=== PATIENT | female | born 1940 | race Caucasian/White ===

== ENCOUNTER 2020-10-20 10:37 | Emergency (ER) | payer MEDICARE ==
--- NOTE | 2020-10-20 11:37 | ED Physician Documentation ---
PD HPI HEADACHE - Stated complaint Stated Complaint: BODY ACHES/RUSHING - Chief complaint Chief Complaint: General - History obtained from History obtained from: Patient - History of Present Illness Timing - onset: Today, Last night Timing - onset during: Light activity Timing - duration: Days (1/2) Timing - details: Gradual onset, Still present Worst headache ever?: No: Worst headache ever? Location: Back, Right Quality: Throbbing Associated symptoms: Nausea, Weakness (general, with myalgias). No: Fever, Stiff neck, Vision changes Improved by: No: Dark room Worsened by: No: Light Contributing factors: Anticoagulated. No: Hypertension, Recent illness ( is not ill. No exposures to COVID or other illness. She has been immunized several months ago.), Trauma Similar symptoms before: Has not had sx before Recently seen: Not recently seen Review of Systems Constitutional: reports: Myalgias, Fatigue. denies: Fever, Chills Nose: denies: Rhinorrhea / runny nose, Congestion Throat: denies: Sore throat Cardiac: reports: Palpitations (history of atrial fib with chronic irregular heart rate.). denies: Chest pain / pressure, Pedal edema, Calf pain Respiratory: denies: Dyspnea, Cough GI: reports: Nausea. 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, Hysterectomy HEENT: Cataracts, Tonsil/Adenoidectomy - Present Medications Home Medications: Ambulatory Orders Medication Instructions Recorded Confirmed Amoxicillin/Potassium Clav 1 each PO BID #10 tablet 10/03/13 10/05/13 [Augmentin 875-125 Tablet] Metoprolol Tartrate 150 mg PO DAILY 10/03/13 10/05/13 Warfarin Sodium [Coumadin] 7.5 mg PO DAILY 10/03/13 10/05/13 Ondansetron Odt [Zofran] 4 mg TL Q6H PRN #10 tablet 10/05/13 Ondansetron Odt [Zofran] 4 mg TL Q6H PRN #10 tablet 10/20/20 - Allergies Allergies/Adverse Reactions: Allergies Allergy/AdvReac Type Severity Reaction Status Date / Time Sulfa (Sulfonamide Allergy Unknown Verified 10/03/13 07:56 Antibiotics) - Living Situation Living Situation: reports: With spouse/s.o. Living Arrangement: reports: At home - Social History Does the pt smoke?: No Smoking Status: Never smoker Does the pt drink ETOH?: Yes Does the pt have substance abuse?: No - POLST Patient has POLST: No PD ED PE NORMAL - Vitals Vital signs reviewed: Yes - General General: Alert and oriented X 3, No acute distress, Well developed/nourished - HEENT HEENT: Atraumatic, Pharynx benign - Neck Neck: Supple, no meningeal sign, No adenopathy - Cardiac Cardiac: No: RRR (irregular with borderline tachycardia) - Respiratory Respiratory: Clear bilaterally - Abdomen Abdomen: Normal bowel sounds, Soft, Non tender, Non distended - Back Back: No CVA TTP - Derm Derm: Normal color, Warm and dry - Extremities Extremities: No edema, No calf tenderness / cord - Neuro Neuro: Alert and oriented X 3, No motor deficit, No sensory deficit, Normal speech Eye Opening: Spontaneous Motor: Obeys Commands Verbal: Oriented GCS Score: 15 - Psych Psych: Normal mood, Normal affect Results - Vitals Vitals: Vital Signs - 24 hr 10/20/20 10/20/20 10/20/20 10:45 12:41 13:32 Temperature 36.9 C 37.1 C Heart Rate 96 101 H 105 H Respiratory 18 20 16 Rate Blood Pressure 124/74 134/92 H 125/91 H O2 Saturation 97 99 95 Oxygen O2 Source Room air - Labs Labs: Laboratory Tests 10/20/20 10/20/20 10/20/20 12:30 12:30 12:30 WBC 7.3 RBC 4.24 Hgb 13.6 Hct 39.3 MCV 92.7 MCH 32.1 H MCHC 34.6 RDW 12.2 Plt Count 157 MPV 10.1 Neut # (Auto) 5.8 Lymph # (Auto) 0.9 L [place] # (Auto) 0.6 Eos # (Auto) 0.0 Baso # (Auto) 0.0 Absolute Nucleated RBC 0.00 Nucleated RBC % 0.0 PT 54.8 H INR 5.5 H* Sodium 138 Potassium 4.0 Chloride 103 Carbon Dioxide 25 Anion Gap 10.0 BUN 16 Creatinine 0.7 Estimated GFR (MDRD) 80 L Glucose 120 H Calcium 9.0 Total Bilirubin 1.1 H AST 30 ALT 24 Alkaline Phosphatase 59 Troponin I High Sens Total Protein 6.9 Albumin 4.3 Globulin 2.6 Albumin/Globulin Ratio 1.7 Lipase 25 10/20/20 12:30 WBC RBC Hgb Hct MCV MCH MCHC RDW Plt Count MPV Neut # (Auto) Lymph # (Auto) [place] # (Auto) Eos # (Auto) Baso # (Auto) Absolute Nucleated RBC Nucleated RBC % PT INR Sodium Potassium Chloride Carbon Dioxide Anion Gap BUN Creatinine Estimated GFR (MDRD) Glucose Calcium Total Bilirubin AST ALT Alkaline Phosphatase Troponin I High Sens 5.1 Total Protein Albumin Globulin Albumin/Globulin Ratio Lipase PD MEDICAL DECISION MAKING - ED course Complexity details: re-evaluated patient (She is feeling much improved with IV fluids and ZOfran/Toradol. Headache is gone. She is feeling well and wishing to go home. ), considered differential (She did not have any injury. Her headache was gradual in onset and associated with myalgias diffusely and general nausea. She is on Coumadin. We will check general labs but considered head CT for bleed which she declined.), d/w patient Departure - Departure Disposition: 01 Home, Self Care Clinical Impression: Nausea, Abdominal cramping, Supratherapeutic international normalized ratio (INR) Headache Qualifiers: Headache type: unspecified Headache chronicity pattern: acute headache Intractability: not intractable Qualified Code(s): R51.9 - Headache, unspecified Condition: Stable Record reviewed to determine appropriate education?: Yes Prescriptions: Ondansetron Odt [Zofran] 4 mg TL Q6H PRN #10 tablet PRN Reason: Nausea / Vomiting Comments: Your symptoms generally sound possibly a viral type illness given the myalgias, nausea, headache, cramping and loose stool. We did do a Covid test and that should result tomorrow. This is less likely given your immunization and lack of contacts but still worth checking. Your blood count is normal. Your ECG shows the atrial fib but no signs of heart attack by ECG and blood test called Troponin. Your INR is above the therapeutic range at 5.5. I would suggest holding your dose tonight and then tomorrow taking a half dose of 3.75 mg and then resume your normal dosing. Meanwhile contact your coagulation clinic to see if they agree with that and have your INR rechecked Tuesday or . Use ondansetron if needed for nausea and Tylenol if needed for pains or aches. If you have increasing headache or other symptoms of confusion blurred vision etc., then return for the head CT scan that we discussed. Discharge Date/Time: 10/20/20 13:44
[2020-10-20] MEDS ORDERED: ONDANSETRON 4 MG/2 ML VIAL IVP STA (12:11)
[2020-10-20] MEDS ORDERED: FAMOTIDINE 20 MG/2 ML VIAL IVP STA (12:11)
[2020-10-20] MEDS ORDERED: SODIUM CHLORIDE 0.9% 1,000 ML IV STA (12:11)
[2020-10-20] MEDS ORDERED: KETOROLAC 15 MG/ML VIAL IVP STA (12:25)
[2020-10-20 12:38] LABS: BASOPHILS % (AUTO) 0.3 %; EOSINOPHILS % (AUTO) 0.3 %; HCT - HEMATOCRIT 39.3 % (37.0-47.0); HGB - HEMOGLOBIN 13.6 g/dL (12.0-16.0); LYMPHOCYTES # (AUTO) 0.9 10^3/uL (1.5-3.5); MEAN CORPUSCULAR HEMOGLOBIN 32.1 pg (27.0-31.0); MEAN CORPUSCULAR HGB CONC 34.6 g/dL (32.0-36.0); MEAN CORPUSCULAR VOLUME 92.7 fL (81.0-99.0); MEAN PLATELET VOLUME 10.1 fL (7.9-10.8); MONOCYTES # (AUTO) 0.6 10^3/uL (0.0-1.0); MONOCYTES % (AUTO) 7.6 %; NEUTROPHILS # (AUTO) 5.8 10^3/uL (1.5-6.6); NEUTROPHILS % (AUTO) 79.5 %; PLT - PLATELET COUNT 157 10^3/uL (130-450); RED BLOOD COUNT 4.24 10^6/uL (4.20-5.40); RED CELL DISTRIBUTION WIDTH 12.2 % (12.0-15.0); WHITE BLOOD COUNT 7.3 x10^3/uL (4.8-10.8)
[2020-10-20 12:49] LABS: PT - PROTHROMBIN TIME 54.8 secs (9.9-12.6)
[2020-10-20 12:53] LABS: ALBUMIN 4.3 g/dL (3.2-5.5); ALBUMIN/GLOBULIN RATIO 1.7 (1.0-2.2); BILIRUBIN,TOTAL 1.1 mg/dL (0.2-1.0); CREATININE 0.7 mg/dL (0.4-1.0); TOTAL PROTEIN 6.9 g/dL (6.7-8.2)
[2020-10-20 12:58] LABS: INR 5.5 (0.8-1.2)
[2020-10-20 13:32] VITALS: BP 125/91
== END 2020-10-20 13:44 | disposition home or self-care (01) ==
LOC: ED 10:37
DX: R11.0 Nausea (principal); R51.9 Headache, unspecified; I48.91 Unspecified atrial fibrillation; Z79.01 Long term (current) use of anticoagulants; R79.1 Abnormal coagulation profile
CPT/HCPCS: 36415; 80053; 83690; 84484; 85025; 85610; 93005; 96374; 99284; U0004

== ENCOUNTER 2022-12-09 09:01 | Outpatient (CLI) | payer MEDICARE ==
[2022-12-09 09:30] LABS: ALBUMIN 4.5 g/dL (3.2-5.5); ALBUMIN/GLOBULIN RATIO 1.9 (1.0-2.2); BILIRUBIN,TOTAL 0.9 mg/dL (0.2-1.0); CALCIUM 9.9 mg/dL (8.5-10.3); CREATININE 0.8 mg/dL (0.6-1.3); POTASSIUM 4.3 mmol/L (3.5-4.5); TOTAL PROTEIN 6.9 g/dL (6.4-8.9)
[2022-12-09 09:47] LABS: THYROID STIMULATING HORMONE 4.85 uIU/mL (0.34-5.60)
== END 2022-12-09 09:02 | disposition home or self-care (01) ==
LOC: LAB 09:01
PROVIDERS: ATTEND Internal Medicine Cardiovascular Disease
DX: I10 Essential (primary) hypertension (principal)
CPT/HCPCS: 36415; 80053; 83880; 84439; 84443

== ENCOUNTER 2022-12-22 10:09 | Outpatient (CLI) | payer MEDICARE | END 2022-12-22 10:10 | disposition home or self-care (01) | LOC: DI 10:09 | PROVIDERS: ATTEND Internal Medicine Cardiovascular Disease | DX: I08.3 Combined rheumatic disorders of mitral, aortic and tricuspid valves (principal); I48.91 Unspecified atrial fibrillation; I87.8 Other specified disorders of veins | CPT/HCPCS: 93306 ==

== ENCOUNTER 2023-02-17 09:06 | Emergency (ER) | payer MEDICARE ==
[2023-02-17 09:38] VITALS: BP 127/82; O2SAT 100
--- NOTE | 2023-02-17 10:29 | XRAY Report ---
PROCEDURE: Chest 2 View X-Ray INDICATIONS: cough TECHNIQUE: 2 views of the chest were acquired. COMPARISON: None. FINDINGS: Surgical changes and devices: None. Lungs and pleura: Patchy airspace opacities of the left lung base with possible nodular density invo lving the medial aspect of the left lower lung zone. No pneumothorax. No substantial pleural effusion . Mediastinum: Mediastinal contours appear normal. Heart size is normal. Bones and chest wall: No suspicious bony lesions. Overlying soft tissues appear unremarkable. IMPRESSION: Patchy left lung base airspace opacity with suggestion of more focal nodular density in the medial le ft lower lung. Findings likely represent infectious process/pneumonia. Recommend follow-up imaging 4- 6 weeks after appropriate treatment to document resolution. If nodular density or opacities persist, further evaluation with CT recommended at that time to exclude possible underlying neoplastic process . Reviewed by: Flaco Dean MD on 02/17/2023 10:[address] [facility] Approved by: Flaco Dean MD on 02/17/2023 10:[address] [facility] Station ID: [id number]
--- NOTE | 2023-02-17 11:11 | ED Physician Documentation ---
PD HPI URI - Stated complaint Stated Complaint: COUGH,SOA - Chief complaint Chief Complaint: Resp - History obtained from History obtained from: Patient - Additional information Additional information: Patient is an 82-year-old female presenting for evaluation of 2 weeks of a productive cough. Denies fever, congestion. Shortness of air or chest pain. Has taken a COVID test which has been negative. Reports feeling that the cough has not been improving on its own thus presenting for evaluation. No recent travel. Denies leg swelling or pain. Review of Systems Constitutional: denies: Fever Cardiac: denies: Chest pain / pressure Respiratory: reports: Cough. 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, Hysterectomy HEENT: Cataracts, Tonsil/Adenoidectomy - Present Medications Home Medications: Ambulatory Orders Medication Instructions Recorded Confirmed Amoxicillin/Potassium Clav 1 each PO BID #10 tablet 10/03/13 10/05/13 [Augmentin 875-125 Tablet] Metoprolol Tartrate 150 mg PO DAILY 10/03/13 10/05/13 Warfarin Sodium [Coumadin] 7.5 mg PO DAILY 10/03/13 10/05/13 Ondansetron Odt [Zofran] 4 mg TL Q6H PRN #10 tablet 10/05/13 Ondansetron Odt [Zofran] 4 mg TL Q6H PRN #10 tablet 10/20/20 Amoxicillin 1,000 mg PO TID 5 Days #30 cap 02/17/23 Benzonatate [Tessalon] 200 mg PO QID PRN #20 cap 02/17/23 - Allergies Allergies/Adverse Reactions: Allergies Allergy/AdvReac Type Severity Reaction Status Date / Time Sulfa (Sulfonamide Allergy Unknown Verified 02/17/23 09:33 Antibiotics) - Social History Does the pt smoke?: No Smoking Status: Never smoker Does the pt drink ETOH?: Yes Does the pt have substance abuse?: No - POLST Patient has POLST: No PD ED PE NORMAL - General General: Alert and oriented X 3, No acute distress, Well developed/nourished - HEENT HEENT: Atraumatic, Moist mucous membranes, Pharynx benign - Neck Neck: Supple, no meningeal sign - Cardiac Cardiac: RRR - Respiratory Respiratory: No respiratory distress, Other (Pain and rhonchi at the left lung base, otherwise clear) - Abdomen Abdomen: Soft, Non tender - Derm Derm: Warm and dry - Extremities Extremities: No edema, No calf tenderness / cord - Neuro Neuro: Normal speech Results - Vitals Vitals: Vital Signs - 24 hr 02/17/23 09:30 Temperature 36.6 C Heart Rate 65 Respiratory 20 Rate Blood Pressure 127/82 H O2 Saturation 100 Oxygen O2 Source Room air PD Medical Decision Making - ED course Complexity details: reviewed results, d/w patient ED course: Patient is 82-year-old female presenting for evaluation of cough for 2 weeks. Vital signs are stable. No signs of labored breathing. Has taken a COVID test at home which has been negative. 2 view chest x-ray which I reviewed demonstrates patchy opacity in the left lung base. Given her symptoms we will opt to treat for pneumonia. Patient counseled regarding treatment plan as well as concerning symptoms to return for. Departure - Departure Disposition: 01 Home, Self Care Clinical Impression: CAP (community acquired pneumonia) Condition: Stable Instructions: ED Pneumonia Adult Prescriptions: Amoxicillin 1,000 mg PO TID 5 Days #30 cap Benzonatate [Tessalon] 200 mg PO QID PRN #20 cap PRN Reason: Cough Comments: I have sent a prescription for an antibiotic to [facility] in [place]. I would also recommend close follow-up with your primary care provider as you should have another x-ray in approximately 4 to 6 weeks after you have completed your treatment. XRAY: Patchy left lung base airspace opacity with suggestion of more focal nodular density in the medial left lower lung. Findings likely represent infectious process/pneumonia. Recommend follow-up imaging 4-6 weeks after appropriate treatment to document resolution. If nodular density or opacities persist, further evaluation with CT recommended at that time to exclude possible underlying neoplastic process. Forms: PCP List Discharge Date/Time: 02/17/23 11:37
== END 2023-02-17 11:37 | disposition home or self-care (01) ==
LOC: ED 09:06
DX: J18.9 Pneumonia, unspecified organism (principal); I48.91 Unspecified atrial fibrillation; Z79.899 Other long term (current) drug therapy; Z79.01 Long term (current) use of anticoagulants
CPT/HCPCS: 99283

== ENCOUNTER 2024-10-23 07:10 | Observation (INO) ==
--- NOTE | 2024-10-23 08:06 | ED Physician Documentation ---
History of Present Illness Stated complaint Stated Complaint: GLF Chief complaint Chief Complaint: Trauma Ch/Bk Additonal information Additional information: Patient is an 84-year-old female with history of A-fib on Xarelto, who presents after she fell out of her bed in the middle of the night, impacting her right lower ribs on her nightstand. She does not think she hit her head, did not lose consciousness. States that after the fall she noticed pain in her left big toe and her right anterior lateral ribs. She states that she has no difficulty breathing, but notices increased pain with deep inspiration. States that the pain radiates to her right lateral thorax, but does not radiate to her back. Otherwise states that she has been feeling well. Denies any current headache, visual changes, neck pain, otherwise chest pressure or chest pain, abdominal pain, flank pain, changes urination or bowel movements. Review of Systems Status of ROS: See HPI Meds/Allgy Home Medications Ambulatory Orders Medication Instructions Recorded Confirmed metoprolol tartrate 100 mg tablet 150 mg PO DAILY 08/1110/23/24 alendronate 70 mg tablet 70 mg PO .COMPLEX 01/09/24 0 10/23/24 apixaban 2.5 mg tablet (Eliquis) 2.5 mg PO BID 4 10/23/24 Allergies Allergies Allergy/AdvReac Type Severity Reaction Status Date / Time amiodarone Allergy eye Verified 10/23/24 07:33 swelling Sulfa (Sulfonamide Allergy Unknown Verified 10/23/24 07:33 Antibiotics) PFSH Active Problems All Active Problems (Updated 10/23/24 @ 11:41 by Jacoby Cervantes MD) Fracture, ribs (Acute) Supratherapeutic INR (Acute) Cellulitis (Acute) Nausea (Acute) Medical History Medical History (Updated 10/23/24 @ 11:41 by Jacoby Cervantes MD) Afib Osteoporosis Surgical History Surgical History (Updated 10/23/24 @ 08:06 by Mando Rain RN) Hx of cholecystectomy Hx of hysterectomy Social History Social History (Updated 10/23/24 @ 08:06 by Mando Rain RN) Smoking Status: Former smoker Do you vape?: No Living arrangement: At home Marital Status: Living Condition: With spouse/s.o. Level: Independent Do you feel safe in your home environment?: Yes History of physical, verbal, emotional, or financial abuse?: No ETOH Use: Wine Frequency: Occasional Substance Use: denies use POLST Patient has POLST: No Exam Exam Vital Signs: Vital Signs x48h Temp Pulse Resp BP Pulse Ox 10/23/24 12:13 84 18 136/81 H 93 10/23/24 11:07 90 18 148/89 H 97 10/23/24 09:11 103 H 18 132/95 H 94 10/23/24 08:09 88 16 141/81 H 99 10/23/24 07:34 36.4 C L 76 18 112/73 97 Constitutional normal general appearance and no apparent distress HENMT normocephalic and head/scalp atraumatic Eyes PERRL and EOMs intact bilaterally Neck/C-Spine trachea midline and cervical spine nontender Lymph no lymphadenopathy noted Chest inspection of chest normal Tender to palpation in right lower chest, no overlying erythema/ecchymoses Respiratory Clear breath sounds bilaterally, no increased respiratory effort. Satting at 98% on room air Cardiovascular Regular rate, irregular rhythm, no murmurs, normal S1-S2. Gastrointestinal abdomen soft to palpation and nontender to palpation No guarding, no rigidity, no peritoneal signs. Nontender to palpation throughout abdomen, no CVA tenderness Back/Pelvis spine normal to inspection, no thoracic spine tenderness, no lumbar spine tenderness, thoracic spine ROM normal and lumbar spine ROM normal Extremities Mild tense palpation in first digit of left foot, otherwise no pain with eversion and inversion of left foot, no tenderness throughout midfoot. No swelling, no ecchymosis Psychiatry Mental Status Exam documented in the separate MSE oriented x3 Results Vitals Vitals: Vital Signs - 24 hr 10/23/24 07:34 10/23/24 08:09 10/23/24 08:17 Temperature 36.4 C L Temperature Source Temporal Artery Scan Pulse Rate 76 88 Respiratory Rate 18 16 Blood Pressure 112/73 141/81 H O2 Saturation 97 99 O2 Source Room air Room air Pain Intensity 4 4 4 10/23/24 09:11 10/23/24 11:07 10/23/24 12:13 Temperature Temperature Source Pulse Rate 103 H 90 84 Respiratory Rate 18 18 18 Blood Pressure 132/95 H 148/89 H 136/81 H O2 Saturation 94 97 93 O2 Source Room air Room air Room air Pain Intensity 4 0 3 Oxygen O2 Source Room air Labs Labs: Laboratory Tests 10/23/24 10/23/24 08:41 12:20 WBC 7.2 RBC 4.04 L Hgb 12.9 Hct 38.1 MCV 94.3 MCH 31.9 H MCHC 33.9 RDW 12.2 Plt Count 189 MPV 10.0 Neut # (Auto) 5.3 Lymph # (Auto) 1.3 L [place] # (Auto) 0.5 Eos # (Auto) 0.1 Baso # (Auto) 0.0 Absolute Nucleated RBC 0.00 Nucleated RBC % 0.0 Urine Color YELLOW Urine Clarity CLEAR Urine pH 7.0 Ur Specific [place] 1.010 Urine Protein NEGATIVE Urine Glucose (UA) NEGATIVE Urine Ketones NEGATIVE Urine Occult Blood NEGATIVE Urine Nitrite NEGATIVE Urine Bilirubin NEGATIVE Urine Urobilinogen 0.2 (NORMAL) Ur Leukocyte Esterase NEGATIVE Ur Microscopic Review NOT INDICATED Urine Culture Comments NOT INDICATED PD Medical Decision Making ED course ED course: Assessment: Patient is an 84-year-old female sustained a fall out of her bed this morning, stating that she rolled out of bed and impacted her nightstand. Presented with pain in her right lower anterior and lateral ribs, and right toe pain. Denies difficulty breathing at rest, but states that she has inspirational pain. Did not hit her head or lose consciousness. Reports no other injuries. DDx: Includes but not limited to, rib fracture, pulmonary contusion, pleurisy, pneumothorax, first digit toe fracture, ground-level fall, traumatic subarachnoid hemorrhage, subdural hemorrhage, C-spine fracture, C-spine ligamentous injury, etc. Workup: Labs grossly unremarkable, urine studies negative for infection. Imaging workup shows nondisplaced fractures in ribs 8 and 11 on the right side. Foot x-ray is unremarkable. Head CT and CT C-spine are unremarkable. Treatment: None, patient felt that her pain was manageable without medication and refused. Discussion: Discussed patient's presentation with on-call surgeon, who agreed that patient should be admitted for monitoring in the setting of multiple rib fractures and advanced age. She has not required any supplemental oxygen in the ER, and has been breathing comfortably. Discharge Plan Discharge Patient Disposition: [facility] DC/Xfer Clinical Impression: Fracture, ribs Qualifiers: Encounter type: initial encounter Fracture type: closed Laterality: right Qualified Code(s): S22.41XA - Multiple fractures of ribs, right side, initial encounter for closed fracture Prescriptions: No Action metoprolol tartrate 100 MG tablet 150 mg PO DAILY alendronate 70 mg tablet 70 mg PO .COMPLEX Rx Instructions: 70 mg orally once a week; Eliquis 2.5 mg tablet 2.5 mg PO BID Print Language: Afghan
[2024-10-23] MEDS: ACETAMINOPHEN 500 MG TABLET PO STA (08:17)
[2024-10-23 08:47] LABS: HCT - HEMATOCRIT 38.1 % (37.0-47.0); HGB - HEMOGLOBIN 12.9 g/dL (12.0-16.0); MEAN PLATELET VOLUME 10.0 fL (7.9-10.8); NRBC ABSOLUTE COUNT (AUTO) 0.00 x10^3/uL; NUCLEATED RED BLOOD CELLS AUTO 0.0 /100WBC; PLT - PLATELET COUNT 189 10^3/uL (130-450); RED CELL DISTRIBUTION WIDTH 12.2 % (12.0-15.0)
--- NOTE | 2024-10-23 09:22 | XRAY Report ---
PROCEDURE: XR Foot 1-2V LT INDICATIONS: left foot pain, big toe after fall TECHNIQUE: 3 views of the foot were acquired. COMPARISON: None. FINDINGS: Bones: No fractures or dislocations. No suspicious bony lesions. IP degenerative changes most severe at the DIP joints. Soft tissues: No tibiotalar joint effusion. Achilles tendon appears normal. IMPRESSION: No visualized acute fracture or dislocation. However, occult injury cannot be excluded. Recommend short interval imaging follow-up in 7-10 days as clinically indicated for additional evaluation. Reviewed by: Shu Foote MD on 10/23/2024 9:20 AM PDT Approved by: Shu Foote MD on 10/23/2024 9:20 AM PDT Station ID: [id number]
--- NOTE | 2024-10-23 09:45 | CT Report ---
PROCEDURE: CT Head WO INDICATIONS: GLF TECHNIQUE: CT of the head was performed, without intravenous contrast. Reformats: Coronal and sagittal. For radiation dose reduction, the following was used: automated exposure control, adjustment of mA and/or kV according to patient size. COMPARISON: None. FINDINGS: Image quality: Diagnostic CSF spaces: Basal cisterns are patent. Lateral ventricles are symmetric. Volume: Vascular calcifications. Periventricular white matter disease is commonly seen with chronic microangiopathy. Volume loss is present. These findings are moderate . Brain: No intracranial hemorrhage. Hightower-white differentiation is grossly maintained. Craniofacial structures: Mild paranasal sinus mucosal thickening. IMPRESSION: No acute intracranial hemorrhage. Reviewed by: Julian Chilel MD on 10/23/2024 9:44 AM PDT Approved by: Julian Chilel MD on 10/23/2024 9:44 AM PDT Station ID: [id number]
--- NOTE | 2024-10-23 09:47 | CT Report ---
PROCEDURE: CT Cervical Spine WO INDICATIONS: ground level fall TECHNIQUE: Noncontrast images acquired from the skull base to the T4 level. Sagittal and coronal reformats were then constructed. For radiation dose reduction, the following was used: automated exposure control, adjustment of mA and/or kV according to patient size. COMPARISON: None. FINDINGS: Image quality: Diagnostic Bones: Moderate spondylosis, with multilevel disc space height loss, facet arthropathy, and osteophytes, worse from C4 to C6. Suspected Schmorl's nodes are seen particularly at C6. No definite acute fracture. There is overall straightening of the normal cervical lordosis. No traumatic subluxation. Soft tissues: No evidence of pneumothorax. No pathologic prevertebral swelling. Chest findings are separately dictated. Left thyroid nodule measuring at least 3 cm. Suspected smaller right-sided thyroid nodules also seen. IMPRESSION: Moderate spondylosis. No acute fracture or subluxation of the cervical spine. If there is high concern for further derangement, consider MRI evaluation. . Left thyroid nodule at least 3 cm, consider nonurgent sonographic follow-up. Reviewed by: Julian Chilel MD on 10/23/2024 9:46 AM PDT Approved by: Julian Chilel MD on 10/23/2024 9:46 AM PDT Station ID: [id number]
--- NOTE | 2024-10-23 09:54 | CT Report ---
PROCEDURE: CT Chest W INDICATIONS: fall right lower rib pain, concern fracture CONTRAST: IV contrast OMNI 300 100ML TECHNIQUE: After the administration of intravenous contrast, a CT scan of the chest was performed. Images were recorded and evaluated at appropriate window settings. Reformats: axial MIP of the chest, coronal and sagittal. For radiation dose reduction, the following was used: automated exposure control, adjustment of mA and/or kV according to patient size. COMPARISON: None. FINDINGS: Image quality: Diagnostic Lungs and pleura:No pneumothorax or hemothorax. Scattered scarring and atelectasis. There are trace pleural effusions. No pulmonary laceration identified. Left lower lung 1.3 cm calcified granuloma seen. Mediastinum, heart, and esophagus: Esophagus appears unremarkable. There are calcified mediastinal lymph nodes likely sequela of prior granulomatous process. Cardiomegaly and biatrial enlargement. Coronary calcifications. There are no enlarged lymph nodes by size criteria. Chest wall and thyroid: Thyroid findings separately dictated on cervical spine CT. Chest wall is unremarkable. Upper abdomen: Suspected liver cysts are partially visualized. Cholecystectomy clips Bones: Suspected nondisplaced lateral right rib fractures of the 11th rib and eighth rib No acute height loss of the thoracic spine. IMPRESSION: Suspected nondisplaced right lower rib fractures are present. No displaced component identified. No pneumothorax. No pulmonary laceration. Scattered pulmonary atelectasis/scarring are seen. Other incidental findings above. Reviewed by: Julian Chilel MD on 10/23/2024 9:53 AM PDT Approved by: Julian Chilel MD on 10/23/2024 9:53 AM PDT Station ID: [id number]
[2024-10-23 12:29] LABS: GLUCOSE, URINE (UA) NEGATIVE (NEGATIVE); KETONES,URINE (UA) NEGATIVE (NEGATIVE); OCCULT BLOOD,URINE NEGATIVE (NEGATIVE)
--- NOTE | 2024-10-23 14:25 | PHARMACY PROGRESS NOTE ---
Best Possible Medication History Admit Date and Time: Home Medications Medication Instructions Recorded Confirmed Type alendronate 70 mg tablet 70 mg PO OAW 01/09/24 History apixaban 2.5 mg tablet (Eliquis) 2.5 mg PO BID 4 10/23/24 History calcium carbonate (Calcium 600) 600 mg PO DAILY 10/23/24 History cholecalciferol (vitamin D3) 25 25 mcg PO DAILY 10/23/24 History mcg (1,000 unit) tablet (Vitamin D3) metoprolol succinate 100 mg 100 mg PO DAILY 10/23/24 0 10/23/24 History tablet,extended release 24 hr multivitamin (Daily Multi-Vitamin 1 tab PO DAILY 10/2310/23/24 History tablet) Processed by: Pharmacy (Medication reconciliation completed by Mechanical Unit RepairerHeidi) Medications reviewed in ED?: Yes Medication History completed: Yes Patient Interview: Completed Secondary Source(s): Insurance records [facility] Statement: As the person ultimately responsible for medication therapy, providers are able to order a medication from an existing home medication list in [facility] via the "Reconcile Routine" prior to Confirmation of that medication by marketing support manager. [facility] practice is discouraged except when the physician, in their clinical judgment, deems that a medical need exists for a medication without regard to previous use.
[2024-10-23] MEDS ORDERED: SODIUM CHLORIDE FLUSH 0.9% 10 ML SYRINGE IVP PRN (17:11)
[2024-10-23] MEDS ORDERED: HYDROcod/ACETAM 5/325 MG TABLET PO PRN (17:11)
[2024-10-23] MEDS ORDERED: ONDANSETRON ODT 4 MG TABLET TL PRN (17:11)
--- NOTE | 2024-10-23 17:18 | CONSULTATION NOTE ---
Referring Provider Name of Referring Provider:: Dr. Jacoby Cervantes Consult Date: 10/23/24 Chief Complaint Chief Complaint Chief Complaint: Right rib fractures with right rib pain History of Present Illness Admitted From Admitted From:: Placed in observation History Obtained From Records Reviewed: Yes History obtained from: Patient Exam Limitations: None History of Present Illness HPI Comment/Other: This delightful 84-year-old female was evaluated in room 4 at [facility]'s emergency department at the request of Dr. Cervantes. The patient fell out of bed last night impacting her right chest and right great toe. When there was no quick resolution to her discomfort she came into the emergency room for evaluation. Her evaluation revealed a broken but not displaced 8th and 11th rib. She denies any shortness of breath or productive cough. She describes her pain as a 4 out of 10. She states that she is normally mildly short of breath due to her A-fib and has difficulty going up and down stairs. Importantly she is on Xarelto for her atrial fibrillation. Meds/Allgy Home Medications Ambulatory Orders Medication Instructions Recorded Confirmed alendronate 70 mg tablet 70 mg PO OAW 01/09/24 apixaban 2.5 mg tablet (Eliquis) 2.5 mg PO BID 4 10/23/24 calcium carbonate (Calcium 600) 600 mg PO DAILY 10/23/24 cholecalciferol (vitamin D3) 25 25 mcg PO DAILY 10/23/24 mcg (1,000 unit) tablet (Vitamin D3) metoprolol succinate 100 mg 100 mg PO DAILY 10/23/24 0 10/23/24 tablet,extended release 24 hr multivitamin (Daily Multi-Vitamin 1 tab PO DAILY 10/2310/23/24 tablet) Allergies Allergies Allergy/AdvReac Type Severity Reaction Status Date / Time amiodarone Allergy eye Verified 10/23/24 07:33 swelling Sulfa (Sulfonamide Allergy Unknown Verified 10/23/24 07:33 Antibiotics) PFSH Active Problems All Active Problems (Updated 10/23/24 @ 11:41 by Jacoby Cervantes MD) Fracture, ribs (Acute) Supratherapeutic INR (Acute) Cellulitis (Acute) Nausea (Acute) Medical History Medical History (Updated 10/23/24 @ 11:41 by Jacoby Cervantes MD) Afib Osteoporosis Surgical History Surgical History (Updated 10/23/24 @ 08:06 by Mando Rain, RN) Hx of cholecystectomy Hx of hysterectomy Social History Social History (Updated 10/23/24 @ 08:06 by Mando Rain, RN) Smoking Status: Former smoker Do you vape?: No Living arrangement: At home Marital Status: Living Condition: With spouse/s.o. Level: Independent Do you feel safe in your home environment?: Yes History of physical, verbal, emotional, or financial abuse?: No ETOH Use: Wine Frequency: Occasional Substance Use: denies use POLST Patient has POLST: No Results Lab Results 10/23/24 08:41 Other Lab Results: Lab Results x24hrs 10/23/24 10/23/24 Range/Units 12:20 08:41 WBC 7.2 (4.8-10.8) x10^3/uL RBC 4.04 L (4.20-5.40) 10^6/uL Hgb 12.9 (12.0-16.0) g/dL Hct 38.1 (37.0-47.0) % MCV 94.3 (81.0-99.0) fL MCH 31.9 H (27.0-31.0) pg MCHC 33.9 (32.0-36.0) g/dL RDW 12.2 (12.0-15.0) % Plt Count 189 (130-450) 10^3/uL MPV 10.0 (7.9-10.8) fL Neut # (Auto) 5.3 (1.5-6.6) 10^3/uL Lymph # (Auto) 1.3 L (1.5-3.5) 10^3/uL [place] # (Auto) 0.5 (0.0-1.0) 10^3/uL Eos # (Auto) 0.1 (0.0-0.7) 10^3/uL Baso # (Auto) 0.0 (0.0-0.1) 10^3/uL Absolute Nucleated RBC 0.00 x10^3/uL Nucleated RBC % 0.0 /100WBC Urine Color YELLOW Urine Clarity CLEAR (CLEAR) Urine pH 7.0 (5.0-7.5) PH Ur Specific [place] 1.010 (1.002-1.030) Urine Protein NEGATIVE (NEGATIVE) mg/dL Urine Glucose (UA) NEGATIVE (NEGATIVE) mg/dL Urine Ketones NEGATIVE (NEGATIVE) mg/dL Urine Occult Blood NEGATIVE (NEGATIVE) Urine Nitrite NEGATIVE (NEGATIVE) Urine Bilirubin NEGATIVE (NEGATIVE) Urine Urobilinogen 0.2 (NORMAL) (NORMAL) E.U./dL Ur Leukocyte Esterase NEGATIVE (NEGATIVE) Ur Microscopic Review NOT INDICATED Urine Culture Comments NOT INDICATED Diagnostic Imaging Results Diagnostic Imaging Results: positive Final report reviewed and Read independently Review of Systems Status of ROS: 10 or more systems reviewed and unremarkable except as noted in history and below Cardiovascular Reports: shortness of breath with exertion and other (Atrial fibrillation) Respiratory Reports: Shortness of breath Exam Exam Vital Signs: Vital Signs x48h Pulse Resp BP Pulse Ox 10/23/24 15:08 77 150/78 H 97 10/23/24 13:58 86 16 134/94 H 96 10/23/24 12:13 84 18 136/81 H 93 10/23/24 11:07 90 18 148/89 H 97 10/23/24 09:11 103 H 18 132/95 H 94 General: 84-year old female, appears stated age, well developed, well nourished, evaluated in room 4 at [facility]'s emergency department HEENT: Normocephalic, atraumatic, extraocular movement intact, mucous membranes pink and moist, sclera anicteric and not injected, Mallampati 2 Neck: Supple without pain on palpation, mass or bruit Cardiac: Irregularly irregular without rub, gallop, or murmur Chest: Clear to auscultation bilaterally, point tenderness laterally on the right corresponding with the rib fractures Abdomen: Benign Genitourinary: Deferred Rectal: Deferred Extremities: No gross neurovascular problem, no clubbing, cyanosis or edema, both great toes without discoloration or pain, excellent hot stick man strength Gait: Not evaluated as the patient is on a gurney Psychiatric: Alert and oriented to person place and time, asks and answers questions appropriately, mood and affect appropriate Conclusion/Plan Problem List (1) Fracture, ribs: Qualifiers: Encounter type: initial encounter Fracture type: closed Laterality: r ight Qualified Code(s): S22.41XA - Multiple fractures of ribs, right side, initial encounter for closed fracture (2) Afib: (3) Osteoporosis: Plan I am bringing the patient in under observation due to her advanced age and risk for complication. My concern is also raised by her use of Xarelto. I have written for oxygen as needed although currently she does not require it keeping her O2 sats at 98% on room air. I have written for pain management in case she needs it but currently she is not requiring any. I am rechecking labs in the morning as well as a chest x-ray and if there are no concerning results I expect to discharge her home tomorrow a.m. I vasculitis know if there is any way we can make her stay here [facility] more comfortable and she stated that she would. I would like to thank Dr. Cervantes very much for the opportunity to participate in her care. CPT 90486 Lab Results 10/23/24 08:41 Diagnostic Imaging Results Diagnostic Imaging Results: positive Final report reviewed and Read independently
[2024-10-23] MEDS: SODIUM CHLORIDE FLUSH 0.9% 10 ML SYRINGE IVP SCH (17:59)
[2024-10-23] MEDS: APIXABAN 2.5 MG TABLET PO STA (17:59)
[2024-10-23] MEDS: DEXTROSE-SOD CHLOR W/20 MEQ K 1,000 ML IV SCH (17:59)
[2024-10-24] MEDS: ACETAMINOPHEN 325 MG TABLET PO PRN (00:50)
[2024-10-24 05:28] LABS: HCT - HEMATOCRIT 36.7 % (37.0-47.0); HGB - HEMOGLOBIN 12.0 g/dL (12.0-16.0); MEAN PLATELET VOLUME 10.4 fL (7.9-10.8); NRBC ABSOLUTE COUNT (AUTO) 0.00 x10^3/uL; NUCLEATED RED BLOOD CELLS AUTO 0.0 /100WBC; PLT - PLATELET COUNT 185 10^3/uL (130-450); RED CELL DISTRIBUTION WIDTH 12.0 % (12.0-15.0)
[2024-10-24 05:46] LABS: ALT ALANINE AMINOTRANSFERASE 13.0 IU/L (10-60); AST ASPARTATE AMINOTRANSFERASE 17.0 IU/L (10-42); BUN - BLOOD UREA NITROGEN 17.0 mg/dL (6-20); CARBON DIOXIDE - CO2 27.0 mmol/L (21-32); CREATININE 0.9 mg/dL (0.6-1.3); GFR - MDRD 60.0 (>89)
--- NOTE | 2024-10-24 08:17 | PROVIDER PROGRESS NOTE ---
Assessment/Plan Problem List (1) Fracture, ribs: Qualifiers: Encounter type: initial encounter Fracture type: closed Laterality: r ight Qualified Code(s): S22.41XA - Multiple fractures of ribs, right side, initial encounter for closed fracture Assessment/Plan: Patient asymptomatic and doing well. I am awaiting the chest x-ray prior to discharge. Labs are nonconcerning. Patient breathing well on room air. Pain is controlled without opiates. Patient instructed on how to use incentive spirometer. Once patient has chest x-ray and if it is normal I will discharge her home with a follow-up as needed with me. (2) Afib: (3) Osteoporosis: Current Meds Current Meds: Current Medications Generic Name Dose Route Start Last Admin Trade Name Freq PRN Reason Stop Dose Admin Acetaminophen 650 mg 10/23/24 17:11 10/24/24 00:50 Acetaminophen 325 Mg Tablet PO 650 mg Q4HR PRN Administration Pain 1 to 4, or Fever Hydrocodone Bitart/Acetaminophen 1 tab 10/23/24 17:11 Hydrocod/Acetam 5/325 Mg Tablet PO Q4HR PRN Pain 5 to 7 Potassium Chloride/Dextrose/Sod Cl 1,000 mls @ 50 mls/hr 10/23/24 17:11 10/23/24 17:59 D5ns W/20 Meq Kcl IV 50 mls/hr .Q20H HIRAL Administration Metoprolol Succinate 100 mg 10/24/24 09:00 Metoprolol Succinate 50 Mg Tablet PO DAILY HIRAL Ondansetron HCl 4 mg 10/23/24 17:11 Ondansetron Odt 4 Mg Tablet TL Q6HR PRN Nausea / Vomiting Sodium Chloride 10 ml 10/23/24 17:11 Sodium Chloride Flush 0.9% 10 Ml Syringe IVP PRN PRN NEEDED PER PROVIDER ORDERS Sodium Chloride 10 ml 10/23/24 17:11 10/24/24 00:46 Sodium Chloride Flush 0.9% 10 Ml Syringe IVP Not Given 0100,0900,1700 HIRAL Lab Result 10/24/24 05:09 10/24/24 05:09 Additional Planning My Orders: My Active Orders 10/23/24 16:49 Code Status Routine 10/23/24 17:11 Acetaminophen [Tylenol] 650 mg PO Q4HR PRN Dextrose-Sod Chlor W/20 Meq K [D5ns W/20 Meq KCl] 1,000 ml IV 50 mls/hr HYDROcod/ACETAM 5/325 [Aguirre 5/325] 1 tab PO Q4HR PRN Ondansetron Odt [Zofran Odt] 4 mg TL Q6HR PRN Sodium Chloride Flush 0.9% [Normal Saline Flush 0.9%] 10 ml IVP 0100,0900,1700 Sodium Chloride Flush 0.9% [Normal Saline Flush 0.9%] 10 ml IVP PRN PRN 10/23/24 17:11 Activity Orders [RC] Q2HR Advance Diet as Tolerated [RC] PRN IO [RC] IOSHIFT Initiate Bowel Care Protocol [RC] .protocol Initiate Line Care Protocol [RC] QSHIFT Initiate Personal Care Protoco [RC] .protocol Oxygen Therapy [RC] .PRN Condition of Patient [OTHERS] Routine DVT Prophylaxis [OTHERS] Routine 10/24/24 Breakfast Regular Diet [DIET] 10/24/24 07:00 XR Chest 2V [XR] Routine 10/24/24 07:31 Incentive Spirometry - RT [RC] .tid 10/24/24 09:00 Metoprolol Succinate [Toprol Xl] 100 mg PO DAILY Subjective Subjective Patient Reports: Feeling Better, Resting Comfortably and No Complaints Objective Vital Signs: Vital Signs - 24 hr 10/23/24 08:17 10/23/24 09:11 10/23/24 11:07 Temperature Temperature Source Pulse Rate 103 H 90 Pulse Rate [Brachial] Respiratory Rate 18 18 Blood Pressure 132/95 H 148/89 H Blood Pressure [Left Brachial artery] O2 Saturation 94 97 O2 Source Room air Room air Sedation scale Pain Intensity 4 4 0 Pain Intensity [Right rib/chest] 10/23/24 12:13 10/23/24 13:58 10/23/24 15:08 Temperature Temperature Source Pulse Rate 84 86 77 Pulse Rate [Brachial] Respiratory Rate 18 16 Blood Pressure 136/81 H 134/94 H 150/78 H Blood Pressure [Left Brachial artery] O2 Saturation 93 96 97 O2 Source Room air Room air Room air Sedation scale Pain Intensity 3 3 Pain Intensity [Right rib/chest] 10/23/24 17:07 10/23/24 17:15 10/23/24 20:52 Temperature 36.4 C L 36.4 C L Temperature Source Skin Temporal Artery Scan Pulse Rate 76 Pulse Rate [Brachial] 87 72 Respiratory Rate 16 18 18 Blood Pressure 165/89 H Blood Pressure [Left Brachial artery] 160/89 H 120/77 O2 Saturation 92 97 97 O2 Source Room air Room air Room air Sedation scale 0-Fully awake 0-Fully awake Pain Intensity 0 Pain Intensity [Right rib/chest] 10/24/24 00:15 10/24/24 00:50 10/24/24 01:00 Temperature 36.6 C Temperature Source Temporal Artery Scan Pulse Rate Pulse Rate [Brachial] 71 Respiratory Rate 16 Blood Pressure Blood Pressure [Left Brachial artery] 125/71 O2 Saturation 96 O2 Source Room air Sedation scale 1-Arouses easily Pain Intensity 3 Pain Intensity [Right rib/chest] 3 10/24/24 02:07 10/24/24 04:00 10/24/24 04:18 Temperature 36.6 C Temperature Source Temporal Artery Scan Pulse Rate Pulse Rate [Brachial] 77 Respiratory Rate 16 Blood Pressure Blood Pressure [Left Brachial artery] 115/74 O2 Saturation 97 O2 Source Room air Sedation scale 1-Arouses easily Pain Intensity 0 Pain Intensity [Right rib/chest] 0 Oxygen O2 Source Room air I&O (Last 24 Hrs): Intake and Output Totals x24h 10/22/24 10/23/24 10/24/24 23:59 23:59 23:59 Intake Total 150 / 150 Balance 150 / 150 General: Alert, Oriented x3 and Cooperative HEENT: Atraumatic and EOMI Neck: Supple Neuro: Alert and Oriented Times 3 Cardiovascular: Other (Irregularly irregular) Respiratory: Breath sounds nml and Other Abdomen: Normal bowel sounds Results Results: Laboratory Results WBC 5.4 x10^3/uL (4.8-10.8) 10/24/24 05:09 RBC 3.86 10^6/uL (4.20-5.40) L 10/24/24 05:09 Hgb 12.0 g/dL (12.0-16.0) 10/24/24 05:09 Hct 36.7 % (37.0-47.0) L 10/24/24 05:09 MCV 95.1 fL (81.0-99.0) 10/24/24 05:09 MCH 31.1 pg (27.0-31.0) H 10/24/24 05:09 MCHC 32.7 g/dL (32.0-36.0) 10/24/24 05:09 RDW 12.0 % (12.0-15.0) 10/24/24 05:09 Plt Count 185 10^3/uL (130-450) 10/24/24 05:09 MPV 10.4 fL (7.9-10.8) 10/24/24 05:09 Neut # (Auto) 3.2 10^3/uL (1.5-6.6) 10/24/24 05:09 Lymph # (Auto) 1.6 10^3/uL (1.5-3.5) 10/24/24 05:09 [place] # (Auto) 0.5 10^3/uL (0.0-1.0) 10/24/24 05:09 Eos # (Auto) 0.2 10^3/uL (0.0-0.7) 10/24/24 05:09 Baso # (Auto) 0.0 10^3/uL (0.0-0.1) 10/24/24 05:09 Absolute Nucleated RBC 0.00 x10^3/uL 10/24/24 05:09 Nucleated RBC % 0.0 /100WBC 10/24/24 05:09 Sodium 141 mmol/L (135-145) 10/24/24 05:09 Potassium 3.9 mmol/L (3.5-4.5) 10/24/24 05:09 Chloride 110 mmol/L (101-111) 10/24/24 05:09 Carbon Dioxide 27 mmol/L (21-32) 10/24/24 05:09 Anion Gap 4.0 (6-13) L 10/24/24 05:09 BUN 17 mg/dL (6-20) 10/24/24 05:09 Creatinine 0.9 mg/dL (0.6-1.3) 10/24/24 05:09 Estimated GFR (MDRD) 60 (>89) L 10/24/24 05:09 Glucose 109 mg/dL (74-104) H 10/24/24 05:09 Calcium 8.7 mg/dL (8.5-10.3) 10/24/24 05:09 Total Bilirubin 1.0 mg/dL (0.2-1.0) 10/24/24 05:09 AST 17 IU/L (10-42) 10/24/24 05:09 ALT 13 IU/L (10-60) 10/24/24 05:09 Alkaline Phosphatase 38 IU/L (42-121) L 10/24/24 05:09 Total Protein 5.8 g/dL (6.4-8.9) L 10/24/24 05:09 Albumin 3.7 g/dL (3.2-5.5) 10/24/24 05:09 Globulin 2.1 g/dL (2.1-4.2) 10/24/24 05:09 Albumin/Globulin Ratio 1.8 (1.0-2.2) 10/24/24 05:09 Urine Color YELLOW 10/23/24 12:20 Urine Clarity CLEAR (CLEAR) 10/23/24 12:20 Urine pH 7.0 PH (5.0-7.5) 10/23/24 12:20 Ur Specific [place] 1.010 (1.002-1.030) 10/23/24 12:20 Urine Protein NEGATIVE mg/dL (NEGATIVE) 10/23/24 12:20 Urine Glucose (UA) NEGATIVE mg/dL (NEGATIVE) 10/23/24 12:20 Urine Ketones NEGATIVE mg/dL (NEGATIVE) 10/23/24 12:20 Urine Occult Blood NEGATIVE (NEGATIVE) 10/23/24 12:20 Urine Nitrite NEGATIVE (NEGATIVE) 10/23/24 12:20 Urine Bilirubin NEGATIVE (NEGATIVE) 10/23/24 12:20 Urine Urobilinogen 0.2 (NORMAL) E.U./dL (NORMAL) 10/23/24 12:20 Ur Leukocyte Esterase NEGATIVE (NEGATIVE) 10/23/24 12:20 Ur Microscopic Review NOT INDICATED 10/23/24 12:20 Urine Culture Comments NOT INDICATED 10/23/24 12:20 ABX Reporting Has patient been on IV antibiotics over the past 48 hours?: No Current Medications Current Medications Current Medications: Current Medications Generic Name Dose Route Start Last Admin Trade Name Freq PRN Reason Stop Dose Admin Acetaminophen 650 mg 10/23/24 17:11 10/24/24 00:50 Acetaminophen 325 Mg Tablet PO 650 mg Q4HR PRN Administration Pain 1 to 4, or Fever Hydrocodone Bitart/Acetaminophen 1 tab 10/23/24 17:11 Hydrocod/Acetam 5/325 Mg Tablet PO Q4HR PRN Pain 5 to 7 Potassium Chloride/Dextrose/Sod Cl 1,000 mls @ 50 mls/hr 10/23/24 17:11 10/23/24 17:59 D5ns W/20 Meq Kcl IV 50 mls/hr .Q20H HIRAL Administration Metoprolol Succinate 100 mg 10/24/24 09:00 Metoprolol Succinate 50 Mg Tablet PO DAILY HIRAL Ondansetron HCl 4 mg 10/23/24 17:11 Ondansetron Odt 4 Mg Tablet TL Q6HR PRN Nausea / Vomiting Sodium Chloride 10 ml 10/23/24 17:11 Sodium Chloride Flush 0.9% 10 Ml Syringe IVP PRN PRN NEEDED PER PROVIDER ORDERS Sodium Chloride 10 ml 10/23/24 17:11 10/24/24 00:46 Sodium Chloride Flush 0.9% 10 Ml Syringe IVP Not Given 0100,0900,1700 HIRAL
[2024-10-24] MEDS: METOPROLOL SUCCINATE 50 MG TABLET PO SCH (09:04)
[2024-10-24 11:37] VITALS: BP 147/80; TEMP 97; O2SAT 98
--- NOTE | 2024-10-24 17:28 | XRAY Report ---
PROCEDURE: XR Chest 2V INDICATIONS: broken ribs TECHNIQUE: 2 views of the chest were acquired. COMPARISON: 02/17/2023 FINDINGS: Surgical changes and devices: Cholecystectomy clips. Lungs and pleura: Coarse interstitial markings, particularly at the right lung base and small right base consolidation centrally. Trace right pleural effusion. No pneumothorax. Left retrocardiac calcified granuloma. Mediastinum: Mild cardiomegaly. Normal central vasculature. Bones and chest wall: Probably minimally displaced right lateral 11th rib fracture. Eighth rib fracture is not well seen. No new fractures are identified. IMPRESSION: Small right lung base opacity and effusion, may be atelectasis due to splinting, or pulmonary contusion depending on the mechanism of injury. No evidence of right pneumothorax. Possible right 11th rib fracture. No other displaced rib fractures identified. Reviewed by: Camryn Evans MD on 10/24/2024 5:27 PM PDT Approved by: Camryn Evans MD on 10/24/2024 5:27 PM PDT Station ID: [id number]
== END 2024-10-24 17:52 | disposition home or self-care (01) ==
LOC: MS2 07:10 → ED 07:10 → MS2 17:16
PROVIDERS: ADMIT Surgery; ATTEND Surgery